=== PATIENT | female | born 1975 | race Caucasian/White ===

== ENCOUNTER 2022-07-04 18:43 | Inpatient (IN) ==
[2022-07-04] MEDS ORDERED: *HR* Rocuronium Bromide 50 MG/5 ML VIAL IVP ONE (18:53)
[2022-07-04] MEDS ORDERED: *HR* Etomidate 20 MG/10 ML AMPUL IVP ONE (18:53)
[2022-07-04] MEDS ORDERED: *HR* Midazolam HCl 2 MG/2 ML VIAL IVP ONE (18:53)
[2022-07-04] MEDS ORDERED: Iopamidol - 370 500 ML MLS IVP ONE (18:59)
[2022-07-04] MEDS ORDERED: 0.9 % Sodium Chloride 1,000 ML IVC ONE (19:00)
[2022-07-04] MEDS ORDERED: Cefepime HCl 2,000 MG in 0.9 % Sodium Chloride 10 ML IVP ONE (19:01)
[2022-07-04] MEDS ORDERED: *HR* LORazepam 2 MG/ML VIAL IVP ONE ×3 (19:16→19:30)
[2022-07-04] MEDS ORDERED: *HR* LORazepam 2 MG/ML VIAL ONE (19:18)
[2022-07-04 20:12] LABS: Hematocrit 45.5 % (35.3-44.9); Hemoglobin 14.9 g/dL (11.5-15.4); Mean Corpuscular HGB Conc 32.7 g/dL (31.6-35.5); Mean Corpuscular Hemoglobin 30.2 pg (28.0-33.3); Mean Corpuscular Volume 92.1 fL (83.0-100.0); Mean Platelet Volume 9.2 fL (9.4-12.4); Monocytes # 0.2 K/mcL (0.0-1.3); Platelet Count 306 K/mcL (140-400); Red Blood Count 4.94 M/mcL (3.82-4.97); Red Cell Distribution Width 12.1 % (11.5-14.5); White Blood Count 4.3 K/mcL (4.3-11.1)
[2022-07-04 20:20] LABS: Prothrombin Time 11.6 Seconds (9.4-12.1)
[2022-07-04 20:23] LABS: Activated Partial Thrombo Time 30.7 Seconds (26.0-36.0)
[2022-07-04 20:24] LABS: Amphetamine Screen,Urine Positive ng/mL (Cutoff=1000); Barbiturate Screen,Urine Negative ng/mL (Cutoff=200); Benzodiazepines Screen,Urine Positive ng/mL (Cutoff=200); Cannabinoid Screen,Urine Positive ng/mL (Cutoff = 50); Cocaine Screen,Urine Negative ng/mL (Cutoff= 300); Opiate Screen,Urine Negative ng/mL (Cutoff=300); Phencyclidine Screen,Urine Negative ng/mL (Cutoff=25)
[2022-07-04 20:27] LABS: Acetaminophen < 10 mcg/mL (10-20); Salicylate < 2.5 mg/dL (15.0-30.0)
[2022-07-04 20:30] LABS: Bacteria,Urine Few per hpf (None-Few); Bilirubin,Urine Negative (Negative); Blood,Urine Moderate (Negative); Clarity,Urine Turbid (Clear); Color,Urine Yellow (Yellow); Glucose,Urine (UA) Normal (Normal); Hyaline Casts,Urine Many per lpf (None Seen); Ketones,Urine Negative (Negative); Leukocyte Esterase,Urine Negative (Negative); Mucus,Urine Moderate per lpf (None-Few); Nitrite,Urine Negative (Negative); PH,Urine 5.5 pH Units (5.0-8.0); Protein,Urine 70 mg/dL (Neg-Trace); RBC,Urine 0-3 per hpf (0-3); Squamous Epithelial Cell,Urine Few per hpf (None-Few)
[2022-07-04 20:42] LABS: BUN/Creatinine Ratio 33 (6-26); Blood Urea Nitrogen 39 mg/dL (6-20); Calcium 8.9 mg/dL (8.6-10.3); Carbon Dioxide 22 mEq/L (23-29); Chloride 106 mEq/L (98-107); Creatine Kinase 2601 Units/L (30-223); Glucose 114 mg/dL (70-105); Osmolality,Calculated 304 (280-300); Potassium 3.5 mEq/L (3.5-5.1); Sodium 142 mEq/L (136-145); Troponin I < 0.03 ng/mL (< 0.04)
[2022-07-04 20:54] LABS: Neutrophils # 3.2 K/mcL (1.6-8.9); Platelet Estimate Normal (Normal)
[2022-07-04 21:07] LABS: ABG Base Excess -8 mEq/L (-2 to 3); ABG HCO3 24 mEq/L (21-27); ABG Oxygen Saturation 94 % (95-98); ABG PCO2 83 mmHg (35-45); ABG PH 7.07 pH Units (7.32-7.45); ABG PO2 104 mmHg (85-104); ABG TCO2 26 mEq/L (20-26); Blood Gas Modality ASSIST CONTROL; Blood Gas VT 400 cc
[2022-07-04] MEDS ORDERED: Ipratropium/Albuterol Neb 3 ML IH ONE (21:09)
[2022-07-04] MEDS ORDERED: methylPREDNISolone 125 MG/2 ML VIAL IVP ONE (21:09)
[2022-07-04] MEDS ORDERED: Pantoprazole 40 MG VIAL IVP ONE (21:11)
[2022-07-05] MEDS ORDERED: Naloxone 0.4 MG/ML INJ IVP PRN (00:01)
[2022-07-05] MEDS ORDERED: Artificial Tears SOLN 15 ML BOTTLE BOTH EYES PRN (00:05)
[2022-07-05] MEDS ORDERED: Ringers Solution, Lactated 1,000 ML IVC ONE (00:07)
[2022-07-05 01:07] LABS: Adenovirus Not Detected (Not Detect); Bordetella Pertussis Not Detected (Not Detect); Chlamydophila pneumoniae Not Detected (Not Detect); Coronavirus 229E Not Detected (Not Detect); Coronavirus HKU1 Not Detected (Not Detect); Coronavirus NL63 Not Detected (Not Detect); Coronavirus OC43 Not Detected (Not Detect); Human Metapneumovirus Not Detected (Not Detect); Human Rhinovirus/Enterovirus Not Detected (Not Detect); Influenza B Not Detected (Not Detect); Parainfluenza Virus 1 Not Detected (Not Detect); Parainfluenza Virus 2 Not Detected (Not Detect); Parainfluenza Virus 3 Not Detected (Not Detect); Parainfluenza Virus 4 Not Detected (Not Detect); Respiratory Syncytial Virus Not Detected (Not Detect); SARS-CoV-2 Not Detected (Not Detect)
[2022-07-05 01:08] LABS: Influenza A Subtype 2009 H1 Not Detected (Not Detect); Mycoplasma pneumoniae Not Detected (Not Detect)
[2022-07-05] MEDS: Artificial Tears SOLN 15 ML BOTTLE BOTH EYES SCH ×6 (01:48→23:05)
[2022-07-05] MEDS: Chlorhexidine Rinse 15 ML MOUTHWASH MM SCH ×3 (01:48→19:36)
[2022-07-05] MEDS: FentaNYL (PF) 1,000 MCG/100 ML IV.SOLN IVC SCH ×4 (01:49→23:04)
[2022-07-05 01:54] LABS: ABG Base Excess -5 mEq/L (-2 to 3); ABG HCO3 23 mEq/L (21-27); ABG Oxygen Saturation 90 % (95-98); ABG PCO2 57 mmHg (35-45); ABG PH 7.22 pH Units (7.32-7.45); ABG PO2 70 mmHg (85-104); ABG TCO2 25 mEq/L (20-26); Blood Gas Modality VC; Blood Gas VT 450 cc
[2022-07-05 02:50] LABS: Hematocrit 39.8 % (35.3-44.9); Mean Corpuscular HGB Conc 32.4 g/dL (31.6-35.5); Mean Corpuscular Hemoglobin 30.2 pg (28.0-33.3); Mean Corpuscular Volume 93.2 fL (83.0-100.0); Mean Platelet Volume 9.5 fL (9.4-12.4); Platelet Count 261 K/mcL (140-400); Red Blood Count 4.27 M/mcL (3.82-4.97); Red Cell Distribution Width 12.3 % (11.5-14.5)
[2022-07-05 03:04] LABS: Hemoglobin 12.9 g/dL (11.5-15.4); White Blood Count 7.5 K/mcL (4.3-11.1)
[2022-07-05 03:40] LABS: Albumin 3.3 g/dL (3.5-5.7); Albumin/Globulin Ratio 1.2 (1.1-2.2); Bilirubin,Direct 0.3 mg/dL (0.0-0.2); Bilirubin,Indirect 0.3 mg/dL (0.0-1.0); Bilirubin,Total 0.6 mg/dL (0.3-1.0); Calcium 8.1 mg/dL (8.6-10.3); Globulin 2.8 g/dL (2.4-3.5); Magnesium 1.9 mg/dL (1.6-2.6); Potassium 5.5 mEq/L (3.5-5.1); Total Protein 6.1 g/dL (6.4-8.9)
[2022-07-05 03:59] LABS: Troponin I < 0.03 ng/mL (< 0.04)
[2022-07-05 04:14] LABS: Neutrophils # 5.6 K/mcL (1.6-8.9)
[2022-07-05 04:15] LABS: Lymphocytes # 1.1 K/mcL (0.6-4.6); Monocytes # 0.9 K/mcL (0.0-1.3)
[2022-07-05 04:16] LABS: Platelet Estimate Normal (Normal)
[2022-07-05 04:32] LABS: ABG Base Excess -2 mEq/L (-2 to 3); ABG HCO3 24 mEq/L (21-27); ABG Oxygen Saturation 96 % (95-98); ABG PCO2 47 mmHg (35-45); ABG PH 7.32 pH Units (7.32-7.45); ABG PO2 92 mmHg (85-104); ABG TCO2 26 mEq/L (20-26); Blood Gas Modality ASSIST CONTROL; Blood Gas VT 450 cc
[2022-07-05] MEDS: Pantoprazole 40 MG VIAL IVP SCH ×2 (04:52→17:49)
[2022-07-05] MEDS: Sodium Bicarbonate 75 MEQ in 0.45 % Sodium Chloride 1,000 ML IVC SCH ×4 (05:58→21:11)
[2022-07-05] MEDS: Ipratropium/Albuterol Neb 3 ML IH SCH ×4 (07:38→22:53)
[2022-07-05] MEDS: MetroNIDAZOLE 500 MG/100 ML 500 MG/100 ML BAG IVPB SCH ×3 (08:12→23:05)
[2022-07-05 08:36] LABS: BUN/Creatinine Ratio 44 (6-26); Blood Urea Nitrogen 33 mg/dL (6-20); Calcium 8.2 mg/dL (8.6-10.3); Carbon Dioxide 26 mEq/L (23-29); Chloride 109 mEq/L (98-107); Creatine Kinase 930 Units/L (30-223); Glucose 121 mg/dL (70-105); Osmolality,Calculated 301 (280-300); Potassium 4.3 mEq/L (3.5-5.1); Sodium 141 mEq/L (136-145)
[2022-07-05] MEDS: SODIUM ZIRCONIUM CYCLOSILICATE 5 GM POWD.PACK PO SCH (10:59)
[2022-07-05] MEDS: Cefepime HCl 2,000 MG in 0.9 % Sodium Chloride 10 ML IVP SCH ×2 (11:02→23:04)
[2022-07-05] MEDS: Bisacodyl 10 MG RECTAL SUPPOSITORY RC SCH (11:02)
[2022-07-05] MEDS: Dexmedetomidine HCl 400 MCG/100 ML MLS IVC SCH (11:48)
[2022-07-05] MEDS ORDERED: *HR* Heparin 5,000 UNIT/ML VIAL IVP ONE (13:20)
[2022-07-05] MEDS ORDERED: *HR* Heparin 5,000 UNIT/ML VIAL IVP PRN (13:20)
[2022-07-05] MEDS: Heparin 25,000UNIT/250ML 1/2NS 25,000 UNIT/250 ML IV.SOLN IVC SCH (13:52)
[2022-07-05] MEDS ORDERED: *HR* Heparin 5,000 UNIT/ML VIAL SQ SCH (14:00)
[2022-07-05 16:49] LABS: Hematocrit 31.5 % (35.3-44.9)
[2022-07-05 17:00] LABS: Hemoglobin 10.4 g/dL (11.5-15.4)
[2022-07-05 22:36] LABS: Hematocrit 31.4 % (35.3-44.9); Hemoglobin 10.3 g/dL (11.5-15.4)
[2022-07-06] MEDS: Artificial Tears SOLN 15 ML BOTTLE BOTH EYES SCH ×6 (03:08→23:47)
[2022-07-06] MEDS: Ipratropium/Albuterol Neb 3 ML IH SCH ×4 (04:06→22:43)
[2022-07-06 04:16] LABS: ABG Base Excess 7 mEq/L (-2 to 3); ABG HCO3 32 mEq/L (21-27); ABG Oxygen Saturation 88 % (95-98); ABG PCO2 44 mmHg (35-45); ABG PH 7.46 pH Units (7.32-7.45); ABG PO2 51 mmHg (85-104); ABG TCO2 33 mEq/L (20-26); Blood Gas Modality ASSIST CONTROL; Blood Gas VT 450 cc
[2022-07-06] MEDS: Sodium Bicarbonate 75 MEQ in 0.45 % Sodium Chloride 1,000 ML IVC SCH (04:46)
[2022-07-06] MEDS: Pantoprazole 40 MG VIAL IVP SCH (05:02)
[2022-07-06] MEDS: Dexmedetomidine HCl 400 MCG/100 ML MLS IVC SCH ×2 (05:02→19:35)
[2022-07-06 05:22] LABS: Hematocrit 28.5 % (35.3-44.9); Hemoglobin 9.5 g/dL (11.5-15.4); Mean Corpuscular HGB Conc 33.3 g/dL (31.6-35.5); Mean Corpuscular Hemoglobin 30.4 pg (28.0-33.3); Mean Corpuscular Volume 91.3 fL (83.0-100.0); Mean Platelet Volume 10.2 fL (9.4-12.4); Platelet Count 151 K/mcL (140-400); Red Blood Count 3.12 M/mcL (3.82-4.97); Red Cell Distribution Width 12.9 % (11.5-14.5); White Blood Count 8.2 K/mcL (4.3-11.1)
[2022-07-06] MEDS: *HR* Heparin 5,000 UNIT/ML VIAL IVP PRN ×2 (05:39→14:29)
[2022-07-06 05:41] LABS: Alanine Aminotransferase 37 Units/L (7-52); Albumin 2.8 g/dL (3.5-5.7); Albumin/Globulin Ratio 1.2 (1.1-2.2); Alkaline Phosphatase 36 Units/L (34-104); Aspartate Amino Transferase 60 Units/L (13-39); BUN/Creatinine Ratio 42 (6-26); Bilirubin,Direct 0.2 mg/dL (0.0-0.2); Bilirubin,Indirect 0.3 mg/dL (0.0-1.0); Bilirubin,Total 0.5 mg/dL (0.3-1.0); Blood Urea Nitrogen 31 mg/dL (6-20); Calcium 7.5 mg/dL (8.6-10.3); Carbon Dioxide 32 mEq/L (23-29); Chloride 105 mEq/L (98-107); Globulin 2.4 g/dL (2.4-3.5); Glucose 110 mg/dL (70-105); Magnesium 2.1 mg/dL (1.6-2.6); Osmolality,Calculated 301 (280-300); Phosphorous 2.4 mg/dL (2.7-4.5); Potassium 3.4 mEq/L (3.5-5.1); Sodium 142 mEq/L (136-145); Total Protein 5.2 g/dL (6.4-8.9)
[2022-07-06 06:16] LABS: Lymphocytes # 1.8 K/mcL (0.6-4.6); Monocytes # 0.5 K/mcL (0.0-1.3); Neutrophils # 5.9 K/mcL (1.6-8.9)
[2022-07-06 06:17] LABS: Platelet Estimate Normal (Normal)
[2022-07-06] MEDS: FentaNYL (PF) 1,000 MCG/100 ML IV.SOLN IVC SCH ×3 (06:24→23:48)
[2022-07-06] MEDS: MetroNIDAZOLE 500 MG/100 ML 500 MG/100 ML BAG IVPB SCH ×3 (07:42→23:48)
[2022-07-06] MEDS: SODIUM ZIRCONIUM CYCLOSILICATE 5 GM POWD.PACK PO SCH (07:42)
[2022-07-06] MEDS: Chlorhexidine Rinse 15 ML MOUTHWASH MM SCH ×2 (07:43→20:09)
[2022-07-06] MEDS: Bisacodyl 10 MG RECTAL SUPPOSITORY RC SCH ×2 (07:44→09:30)
[2022-07-06 08:25] LABS: Hematocrit 28.2 % (35.3-44.9); Hemoglobin 9.4 g/dL (11.5-15.4); Mean Corpuscular HGB Conc 33.3 g/dL (31.6-35.5); Mean Corpuscular Hemoglobin 30.3 pg (28.0-33.3); Mean Platelet Volume 11.2 fL (9.4-12.4); Platelet Count 195 K/mcL (140-400); White Blood Count 8.2 K/mcL (4.3-11.1)
[2022-07-06 08:38] LABS: BUN/Creatinine Ratio 44 (6-26); Blood Urea Nitrogen 30 mg/dL (6-20); Calcium 7.5 mg/dL (8.6-10.3); Carbon Dioxide 33 mEq/L (23-29); Chloride 104 mEq/L (98-107); Glucose 101 mg/dL (70-105); Osmolality,Calculated 298 (280-300); Potassium 3.4 mEq/L (3.5-5.1); Sodium 141 mEq/L (136-145)
[2022-07-06] MEDS: Calcium Gluconate 1gm/50mL 1 GM/50 ML BAG IVPB PRN (08:57)
[2022-07-06] MEDS: Cefepime HCl 2,000 MG in 0.9 % Sodium Chloride 10 ML IVP SCH ×2 (09:02→17:34)
[2022-07-06] MEDS: QUEtiapine Fumarate 25 MG TABLET PO SCH ×2 (10:44→20:08)
[2022-07-06 10:55] LABS: Lymphocytes # 1.6 K/mcL (0.6-4.6); Monocytes # 0.3 K/mcL (0.0-1.3); Neutrophils # 6.2 K/mcL (1.6-8.9); Platelet Estimate Normal (Normal)
[2022-07-06] MEDS ORDERED: Simethicone 40 MG/0.6 ML MLS ONE (11:41)
[2022-07-06] MEDS ORDERED: Simethicone 40 MG/0.6 ML MLS IR ONE (12:21)
[2022-07-06 12:48] LABS: Hematocrit 27.6 % (35.3-44.9)
[2022-07-06 13:04] LABS: BUN/Creatinine Ratio 46 (6-26); Blood Urea Nitrogen 27 mg/dL (6-20); Calcium 7.8 mg/dL (8.6-10.3); Carbon Dioxide 31 mEq/L (23-29); Chloride 106 mEq/L (98-107); Glucose 98 mg/dL (70-105); Osmolality,Calculated 297 (280-300); Potassium 3.9 mEq/L (3.5-5.1); Sodium 141 mEq/L (136-145)
[2022-07-06] MEDS ORDERED: Furosemide 20 MG/2 ML VIAL IVP ONE (15:54)
[2022-07-06 18:07] LABS: Hematocrit 26.7 % (35.3-44.9); Hemoglobin 8.8 g/dL (11.5-15.4)
[2022-07-06 18:09] LABS: VBG Ionized Calcium 1.11 mmol/L (1.15-1.35)
[2022-07-06 18:26] LABS: BUN/Creatinine Ratio 42 (6-26); Blood Urea Nitrogen 24 mg/dL (6-20); Calcium 7.6 mg/dL (8.6-10.3); Carbon Dioxide 29 mEq/L (23-29); Chloride 107 mEq/L (98-107); Glucose 92 mg/dL (70-105); Magnesium 2.2 mg/dL (1.6-2.6); Osmolality,Calculated 298 (280-300); Potassium 3.6 mEq/L (3.5-5.1); Sodium 142 mEq/L (136-145)
[2022-07-06] MEDS: Heparin 25,000UNIT/250ML 1/2NS 25,000 UNIT/250 ML IV.SOLN IVC SCH (21:35)
[2022-07-06 23:38] LABS: Hematocrit 25.9 % (35.3-44.9); Hemoglobin 8.6 g/dL (11.5-15.4)
[2022-07-07] MEDS: Cefepime HCl 2,000 MG in 0.9 % Sodium Chloride 10 ML IVP SCH ×3 (01:08→17:57)
[2022-07-07] MEDS: Artificial Tears SOLN 15 ML BOTTLE BOTH EYES SCH ×3 (03:13→11:29)
[2022-07-07] MEDS: Dexmedetomidine HCl 400 MCG/100 ML MLS IVC SCH ×3 (04:00→18:55)
[2022-07-07] MEDS: Ipratropium/Albuterol Neb 3 ML IH SCH ×4 (04:07→21:49)
[2022-07-07 04:14] LABS: Hematocrit 26.3 % (35.3-44.9); Hemoglobin 8.6 g/dL (11.5-15.4); Mean Corpuscular HGB Conc 32.7 g/dL (31.6-35.5); Mean Corpuscular Hemoglobin 30.6 pg (28.0-33.3); Mean Corpuscular Volume 93.6 fL (83.0-100.0); Mean Platelet Volume 10.6 fL (9.4-12.4); Platelet Count 157 K/mcL (140-400); Red Blood Count 2.81 M/mcL (3.82-4.97); Red Cell Distribution Width 12.9 % (11.5-14.5); White Blood Count 10.9 K/mcL (4.3-11.1)
[2022-07-07 04:21] LABS: ABG Base Excess 4 mEq/L (-2 to 3); ABG HCO3 28 mEq/L (21-27); ABG Oxygen Saturation 95 % (95-98); ABG PCO2 41 mmHg (35-45); ABG PH 7.45 pH Units (7.32-7.45); ABG PO2 70 mmHg (85-104); ABG TCO2 30 mEq/L (20-26); Blood Gas Modality ASSIST CONTROL; Blood Gas VT 380 cc
[2022-07-07 04:22] LABS: VBG Ionized Calcium 1.08 mmol/L (1.15-1.35)
[2022-07-07 04:33] LABS: Alanine Aminotransferase 34 Units/L (7-52); Albumin 2.5 g/dL (3.5-5.7); Alkaline Phosphatase 36 Units/L (34-104); Aspartate Amino Transferase 68 Units/L (13-39); BUN/Creatinine Ratio 42 (6-26); Bilirubin,Direct 0.2 mg/dL (0.0-0.2); Bilirubin,Indirect 0.2 mg/dL (0.0-1.0); Bilirubin,Total 0.4 mg/dL (0.3-1.0); Blood Urea Nitrogen 24 mg/dL (6-20); Calcium 7.7 mg/dL (8.6-10.3); Carbon Dioxide 28 mEq/L (23-29); Chloride 108 mEq/L (98-107); Globulin 2.5 g/dL (2.4-3.5); Glucose 83 mg/dL (70-105); Magnesium 2.2 mg/dL (1.6-2.6); Osmolality,Calculated 293 (280-300); Potassium 3.8 mEq/L (3.5-5.1); Sodium 140 mEq/L (136-145)
[2022-07-07] MEDS: Calcium Gluconate 1gm/50mL 1 GM/50 ML BAG IVPB PRN (04:51)
[2022-07-07 05:30] LABS: Platelet Estimate Normal (Normal)
[2022-07-07 05:41] LABS: Neutrophils # 8.7 K/mcL (1.6-8.9)
[2022-07-07] MEDS: QUEtiapine Fumarate 25 MG TABLET PO SCH ×2 (07:21→19:45)
[2022-07-07] MEDS: MetroNIDAZOLE 500 MG/100 ML 500 MG/100 ML BAG IVPB SCH ×3 (07:21→23:23)
[2022-07-07] MEDS: Bisacodyl 10 MG RECTAL SUPPOSITORY RC SCH (07:21)
[2022-07-07] MEDS: Chlorhexidine Rinse 15 ML MOUTHWASH MM SCH (07:21)
[2022-07-07] MEDS: *HR* Heparin 5,000 UNIT/ML VIAL IVP PRN ×2 (07:33→20:59)
[2022-07-07 08:30] LABS: BUN/Creatinine Ratio 41 (6-26); Blood Urea Nitrogen 23 mg/dL (6-20); Calcium 8.1 mg/dL (8.6-10.3); Carbon Dioxide 26 mEq/L (23-29); Chloride 108 mEq/L (98-107); Glucose 88 mg/dL (70-105); Osmolality,Calculated 293 (280-300); Potassium 4.2 mEq/L (3.5-5.1); Sodium 140 mEq/L (136-145)
[2022-07-07] MEDS ORDERED: *HR* LORazepam 2 MG/ML VIAL IVP PRN (09:17)
[2022-07-07] MEDS: Famotidine 20 MG/2 ML VIAL IVP SCH (09:23)
[2022-07-07 17:00] LABS: VBG Ionized Calcium 1.11 mmol/L (1.15-1.35)
[2022-07-07] MEDS ORDERED: *HR* LORazepam 1 MG TABLET PO PRN (18:02)
[2022-07-07] MEDS: Heparin 25,000UNIT/250ML 1/2NS 25,000 UNIT/250 ML IV.SOLN IVC SCH ×2 (18:18→19:45)
[2022-07-07] MEDS ORDERED: Furosemide 20 MG/2 ML VIAL IVP ONE (18:22)
[2022-07-07 18:59] LABS: Hematocrit 30.1 % (35.3-44.9); Hemoglobin 9.7 g/dL (11.5-15.4)
[2022-07-08] MEDS ORDERED: Furosemide 20 MG/2 ML VIAL IVP ONE ×2 (03:00→15:56)
[2022-07-08] MEDS: Ipratropium/Albuterol Neb 3 ML IH SCH ×4 (04:30→22:41)
[2022-07-08 05:03] LABS: VBG Ionized Calcium 0.98 mmol/L (1.15-1.35)
[2022-07-08 05:20] LABS: Basophils % 0.3 %; Eosinophils # 0.1 K/mcL (0.0-0.6); Eosinophils % 0.4 %; Hematocrit 32.6 % (35.3-44.9); Lymphocytes # 1.7 K/mcL (0.6-4.6); Lymphocytes % 14.5 %; Mean Corpuscular HGB Conc 33.7 g/dL (31.6-35.5); Mean Corpuscular Hemoglobin 30.3 pg (28.0-33.3); Mean Corpuscular Volume 89.8 fL (83.0-100.0); Mean Platelet Volume 10.5 fL (9.4-12.4); Monocytes # 0.5 K/mcL (0.0-1.3); Monocytes % 4.7 %; Neutrophils # 9.1 K/mcL (1.6-8.9); Platelet Count 202 K/mcL (140-400); Red Blood Count 3.63 M/mcL (3.82-4.97); Red Cell Distribution Width 12.2 % (11.5-14.5); Segmented Neutrophils % 79.1 %; White Blood Count 11.6 K/mcL (4.3-11.1)
[2022-07-08 05:28] LABS: Alanine Aminotransferase 62 Units/L (7-52); Albumin 3.2 g/dL (3.5-5.7); Albumin/Globulin Ratio 0.9 (1.1-2.2); Alkaline Phosphatase 55 Units/L (34-104); Aspartate Amino Transferase 137 Units/L (13-39); BUN/Creatinine Ratio 26 (6-26); BUN/Creatinine Ratio 27 (6-26); Bilirubin,Direct 0.3 mg/dL (0.0-0.2); Bilirubin,Indirect 0.6 mg/dL (0.0-1.0); Bilirubin,Total 0.9 mg/dL (0.3-1.0); Blood Urea Nitrogen 14 mg/dL (6-20); Calcium 8.8 mg/dL (8.6-10.3); Carbon Dioxide 30 mEq/L (23-29); Carbon Dioxide 31 mEq/L (23-29); Chloride 100 mEq/L (98-107); Globulin 3.4 g/dL (2.4-3.5); Glucose 107 mg/dL (70-105); Glucose 110 mg/dL (70-105); Magnesium 1.4 mg/dL (1.6-2.6); Osmolality,Calculated 293 (280-300); Potassium 2.7 mEq/L (3.5-5.1); Sodium 141 mEq/L (136-145); Total Protein 6.6 g/dL (6.4-8.9)
[2022-07-08] MEDS: Cefepime HCl 2,000 MG in 0.9 % Sodium Chloride 10 ML IVP SCH ×3 (05:39→17:08)
[2022-07-08] MEDS: Dexmedetomidine HCl 400 MCG/100 ML MLS IVC SCH ×2 (05:39→16:56)
[2022-07-08] MEDS: *HR* Heparin 5,000 UNIT/ML VIAL IVP PRN ×2 (06:20→16:00)
[2022-07-08] MEDS ORDERED: Calcium Gluconate 1gm/50mL 1 GM/50 ML BAG IVPB ONE (06:58)
[2022-07-08] MEDS: Famotidine 20 MG/2 ML VIAL IVP SCH (07:33)
[2022-07-08] MEDS: QUEtiapine Fumarate 25 MG TABLET PO SCH ×2 (07:41→19:21)
[2022-07-08] MEDS: MetroNIDAZOLE 500 MG/100 ML 500 MG/100 ML BAG IVPB SCH ×3 (07:46→23:24)
[2022-07-08] MEDS: Bisacodyl 10 MG RECTAL SUPPOSITORY RC SCH (07:52)
[2022-07-08 10:57] LABS: Phosphorous 1.6 mg/dL (2.7-4.5)
[2022-07-08 12:46] LABS: VBG Ionized Calcium 0.91 mmol/L (1.15-1.35)
[2022-07-08 14:10] LABS: BUN/Creatinine Ratio 35 (6-26); Blood Urea Nitrogen 14 mg/dL (6-20); Calcium 8.7 mg/dL (8.6-10.3); Carbon Dioxide 21 mEq/L (23-29); Chloride 101 mEq/L (98-107); Glucose 115 mg/dL (70-105); Magnesium 1.6 mg/dL (1.6-2.6); Osmolality,Calculated 285 (280-300); Phosphorous 2.2 mg/dL (2.7-4.5); Potassium 3.1 mEq/L (3.5-5.1); Sodium 137 mEq/L (136-145)
[2022-07-08] MEDS ORDERED: Potassium Phosphate 44 MEQ in 0.9 % Sodium Chloride 250 ML IVPB ONE ×2 (15:56→20:47)
[2022-07-08] MEDS: Calcium Gluconate 1gm/50mL 1 GM/50 ML BAG IVPB SCH ×3 (16:57→18:40)
[2022-07-08] MEDS: Heparin 25,000UNIT/250ML 1/2NS 25,000 UNIT/250 ML IV.SOLN IVC SCH (19:17)
[2022-07-08] MEDS ORDERED: Calcium Gluconate 1gm/50mL 1 GM/50 ML BAG IVPB SCH (21:00)
[2022-07-08] MEDS: *HR* LORazepam 2 MG/ML VIAL IVP PRN (21:19)
[2022-07-08 22:29] LABS: Hematocrit 37.1 % (35.3-44.9)
[2022-07-08 22:30] LABS: VBG Ionized Calcium 1.03 mmol/L (1.15-1.35)
[2022-07-08 22:31] LABS: Hemoglobin 12.6 g/dL (11.5-15.4)
[2022-07-08 22:47] LABS: BUN/Creatinine Ratio 21 (6-26); Blood Urea Nitrogen 9 mg/dL (6-20); Calcium 9.2 mg/dL (8.6-10.3); Carbon Dioxide 28 mEq/L (23-29); Chloride 99 mEq/L (98-107); Glucose 104 mg/dL (70-105); Magnesium 2.1 mg/dL (1.6-2.6); Osmolality,Calculated 285 (280-300); Phosphorous 4.5 mg/dL (2.7-4.5); Sodium 138 mEq/L (136-145)
[2022-07-09] MEDS: Cefepime HCl 2,000 MG in 0.9 % Sodium Chloride 10 ML IVP SCH ×2 (01:04→08:36)
[2022-07-09] MEDS: *HR* LORazepam 2 MG/ML VIAL IVP PRN ×2 (03:06→20:06)
[2022-07-09] MEDS: Ipratropium/Albuterol Neb 3 ML IH SCH ×4 (03:21→20:51)
[2022-07-09 04:10] LABS: Basophils % 0.3 %; Eosinophils % 1.2 %; Hematocrit 32.8 % (35.3-44.9); Hemoglobin 11.2 g/dL (11.5-15.4); Lymphocytes # 2.6 K/mcL (0.6-4.6); Lymphocytes % 28.9 %; Mean Corpuscular HGB Conc 34.1 g/dL (31.6-35.5); Mean Corpuscular Hemoglobin 30.1 pg (28.0-33.3); Mean Corpuscular Volume 88.2 fL (83.0-100.0); Mean Platelet Volume 10.1 fL (9.4-12.4); Monocytes % 5.6 %; Neutrophils # 5.5 K/mcL (1.6-8.9); Platelet Count 220 K/mcL (140-400); Red Blood Count 3.72 M/mcL (3.82-4.97); Red Cell Distribution Width 12.4 % (11.5-14.5); White Blood Count 8.9 K/mcL (4.3-11.1)
[2022-07-09 04:11] LABS: Eosinophils # 0.1 K/mcL (0.0-0.6); Monocytes # 0.5 K/mcL (0.0-1.3)
[2022-07-09 04:12] LABS: VBG Ionized Calcium 1.04 mmol/L (1.15-1.35)
[2022-07-09 04:25] LABS: Alanine Aminotransferase 58 Units/L (7-52); Albumin/Globulin Ratio 0.9 (1.1-2.2); Alkaline Phosphatase 49 Units/L (34-104); Aspartate Amino Transferase 66 Units/L (13-39); BUN/Creatinine Ratio 27 (6-26); Bilirubin,Direct 0.2 mg/dL (0.0-0.2); Bilirubin,Indirect 0.4 mg/dL (0.0-1.0); Bilirubin,Total 0.6 mg/dL (0.3-1.0); Blood Urea Nitrogen 11 mg/dL (6-20); Calcium 8.5 mg/dL (8.6-10.3); Carbon Dioxide 29 mEq/L (23-29); Chloride 101 mEq/L (98-107); Globulin 3.5 g/dL (2.4-3.5); Glucose 123 mg/dL (70-105); Magnesium 1.8 mg/dL (1.6-2.6); Osmolality,Calculated 289 (280-300); Potassium 3.5 mEq/L (3.5-5.1); Sodium 139 mEq/L (136-145); Total Protein 6.5 g/dL (6.4-8.9)
[2022-07-09] MEDS: Dexmedetomidine HCl 400 MCG/100 ML MLS IVC SCH (07:36)
[2022-07-09] MEDS: MetroNIDAZOLE 500 MG/100 ML 500 MG/100 ML BAG IVPB SCH (07:37)
[2022-07-09] MEDS: Calcium Gluconate 1gm/50mL 1 GM/50 ML BAG IVPB PRN (07:38)
[2022-07-09] MEDS: Bisacodyl 10 MG RECTAL SUPPOSITORY RC SCH (07:40)
[2022-07-09] MEDS: Famotidine 20 MG/2 ML VIAL IVP SCH (07:40)
[2022-07-09] MEDS: QUEtiapine Fumarate 25 MG TABLET PO SCH ×2 (07:40→21:43)
[2022-07-09] MEDS: Pantoprazole 40 MG VIAL IVP SCH (07:41)
[2022-07-09 09:56] LABS: ABG Base Excess 7 mEq/L (-2 to 3); ABG HCO3 29 mEq/L (21-27); ABG Oxygen Saturation 89 % (95-98); ABG PCO2 33 mmHg (35-45); ABG PH 7.55 pH Units (7.32-7.45); ABG PO2 48 mmHg (85-104); ABG TCO2 30 mEq/L (20-26)
[2022-07-09] MEDS: Heparin 25,000UNIT/250ML 1/2NS 25,000 UNIT/250 ML IV.SOLN IVC SCH (15:43)
[2022-07-10 00:41] LABS: Basophils % 0.3 %; Eosinophils # 0.1 K/mcL (0.0-0.6); Eosinophils % 0.9 %; Hematocrit 33.3 % (35.3-44.9); Hemoglobin 10.7 g/dL (11.5-15.4); Immature Granulocytes % 3.2 % (0-4); Lymphocytes # 2.5 K/mcL (0.6-4.6); Lymphocytes % 24.3 %; Mean Corpuscular HGB Conc 32.1 g/dL (31.6-35.5); Mean Corpuscular Hemoglobin 29.8 pg (28.0-33.3); Mean Corpuscular Volume 92.8 fL (83.0-100.0); Mean Platelet Volume 10.7 fL (9.4-12.4); Monocytes # 0.4 K/mcL (0.0-1.3); Monocytes % 3.9 %; Neutrophils # 7.1 K/mcL (1.6-8.9); Platelet Count 205 K/mcL (140-400); Red Blood Count 3.59 M/mcL (3.82-4.97); Red Cell Distribution Width 12.7 % (11.5-14.5); Segmented Neutrophils % 67.4 %; White Blood Count 10.5 K/mcL (4.3-11.1)
[2022-07-10 00:45] LABS: VBG Ionized Calcium 0.96 mmol/L (1.15-1.35)
[2022-07-10 00:59] LABS: Alanine Aminotransferase 45 Units/L (7-52); Albumin 2.9 g/dL (3.5-5.7); Albumin/Globulin Ratio 0.9 (1.1-2.2); Alkaline Phosphatase 44 Units/L (34-104); Aspartate Amino Transferase 32 Units/L (13-39); BUN/Creatinine Ratio 15 (6-26); Bilirubin,Direct 0.1 mg/dL (0.0-0.2); Bilirubin,Indirect 0.3 mg/dL (0.0-1.0); Bilirubin,Total 0.4 mg/dL (0.3-1.0); Blood Urea Nitrogen 6 mg/dL (6-20); Calcium 8.1 mg/dL (8.6-10.3); Carbon Dioxide 23 mEq/L (23-29); Chloride 105 mEq/L (98-107); Globulin 3.3 g/dL (2.4-3.5); Glucose 157 mg/dL (70-105); Magnesium 1.6 mg/dL (1.6-2.6); Osmolality,Calculated 289 (280-300); Potassium 3.2 mEq/L (3.5-5.1); Sodium 139 mEq/L (136-145); Total Protein 6.2 g/dL (6.4-8.9)
[2022-07-10] MEDS: *HR* LORazepam 2 MG/ML VIAL IVP PRN ×2 (02:10→20:08)
[2022-07-10] MEDS: Calcium Gluconate 1gm/50mL 1 GM/50 ML BAG IVPB PRN (03:01)
[2022-07-10] MEDS: Ipratropium/Albuterol Neb 3 ML IH SCH ×4 (04:25→22:32)
[2022-07-10] MEDS: Pantoprazole 40 MG VIAL IVP SCH (07:34)
[2022-07-10] MEDS: Bisacodyl 10 MG RECTAL SUPPOSITORY RC SCH (07:35)
[2022-07-10] MEDS: QUEtiapine Fumarate 25 MG TABLET PO SCH (07:35)
[2022-07-10] MEDS: Famotidine 20 MG/2 ML VIAL IVP SCH (07:36)
[2022-07-10] MEDS: Calcium Gluconate 1gm/50mL 1 GM/50 ML BAG IVPB SCH ×2 (08:55→08:56)
[2022-07-10 14:14] LABS: VBG Ionized Calcium 1.16 mmol/L (1.15-1.35)
[2022-07-10 14:28] LABS: BUN/Creatinine Ratio 14 (6-26); Blood Urea Nitrogen 5 mg/dL (6-20); Calcium 8.4 mg/dL (8.6-10.3); Carbon Dioxide 27 mEq/L (23-29); Chloride 107 mEq/L (98-107); Glucose 155 mg/dL (70-105); Osmolality,Calculated 290 (280-300); Phosphorous 2.9 mg/dL (2.7-4.5); Potassium 3.4 mEq/L (3.5-5.1); Sodium 140 mEq/L (136-145)
[2022-07-10] MEDS: Apixaban 5 MG TABLET PO SCH ×2 (18:17→20:12)
[2022-07-10] MEDS ORDERED: QUEtiapine Fumarate 25 MG TABLET PO SCH (21:00)
[2022-07-11] MEDS: Ipratropium/Albuterol Neb 3 ML IH SCH ×2 (04:14→09:16)
[2022-07-11] MEDS: *HR* LORazepam 2 MG/ML VIAL IVP PRN (04:19)
[2022-07-11 04:50] LABS: Basophils % 0.3 %; Eosinophils # 0.3 K/mcL (0.0-0.6); Eosinophils % 1.9 %; Hematocrit 31.2 % (35.3-44.9); Hemoglobin 10.2 g/dL (11.5-15.4); Immature Granulocytes % 3.1 % (0-4); Lymphocytes # 3.5 K/mcL (0.6-4.6); Lymphocytes % 25.9 %; Mean Corpuscular HGB Conc 32.7 g/dL (31.6-35.5); Mean Corpuscular Hemoglobin 30.3 pg (28.0-33.3); Mean Corpuscular Volume 92.6 fL (83.0-100.0); Mean Platelet Volume 9.8 fL (9.4-12.4); Monocytes # 0.6 K/mcL (0.0-1.3); Monocytes % 4.4 %; Neutrophils # 8.7 K/mcL (1.6-8.9); Platelet Count 302 K/mcL (140-400); Red Blood Count 3.37 M/mcL (3.82-4.97); Red Cell Distribution Width 13.1 % (11.5-14.5); Segmented Neutrophils % 64.4 %; White Blood Count 13.4 K/mcL (4.3-11.1)
[2022-07-11 04:52] LABS: VBG Ionized Calcium 1.14 mmol/L (1.15-1.35)
[2022-07-11 05:11] LABS: Alanine Aminotransferase 34 Units/L (7-52); Albumin 2.8 g/dL (3.5-5.7); Albumin/Globulin Ratio 0.8 (1.1-2.2); Alkaline Phosphatase 46 Units/L (34-104); Aspartate Amino Transferase 17 Units/L (13-39); BUN/Creatinine Ratio 12 (6-26); Bilirubin,Total 0.3 mg/dL (0.3-1.0); Blood Urea Nitrogen 5 mg/dL (6-20); Calcium 8.3 mg/dL (8.6-10.3); Carbon Dioxide 25 mEq/L (23-29); Chloride 109 mEq/L (98-107); Globulin 3.4 g/dL (2.4-3.5); Glucose 170 mg/dL (70-105); Magnesium 1.6 mg/dL (1.6-2.6); Osmolality,Calculated 291 (280-300); Potassium 3.8 mEq/L (3.5-5.1); Sodium 140 mEq/L (136-145); Total Protein 6.2 g/dL (6.4-8.9)
[2022-07-11 07:03] VITALS: TEMP 98.5
[2022-07-11] MEDS: Famotidine 20 MG/2 ML VIAL IVP SCH (09:15)
[2022-07-11] MEDS: Pantoprazole 40 MG VIAL IVP SCH (09:15)
[2022-07-11] MEDS: Apixaban 5 MG TABLET PO SCH (09:15)
[2022-07-11] MEDS: Bisacodyl 10 MG RECTAL SUPPOSITORY RC SCH (09:15)
[2022-07-11 15:07] VITALS: BP 129/94; PULSE 119; O2SAT 99
== END 2022-07-11 15:07 | disposition home or self-care (01) | DRG 720 ==
LOC: ICNU 18:43 → EMEROOARM 18:43 → OBSVTOIN 07-05 00:31 → ICNU 07-05 01:25
PROVIDERS: ADMIT Internal Medicine; ATTEND Internal Medicine